=== PATIENT | female | born 1965 | race Caucasian/White ===

== ENCOUNTER 2017-12-03 21:51 | Emergency (ER) | payer BC, MEDICAID ==
[~2017-12-03] VITALS: Ht 165.1 cm; Wt 52.2 kg
[2017-12-03 21:51] VITALS: BP 102/64
[~2017-12-03 21:51] MED LIST: IBUP200C5 PO; SULF1TAB44 PO; SUMA4PEN SQ; [UNRECOGNIZED DRUG - OTHER]
[2017-12-03] MEDS ORDERED: LIDOCAINE HCL/PF 1% 30 ML VIAL TP ONE (23:00)
[2017-12-03] MEDS ORDERED: LIDOCAINE /MPF 1% VIAL 5 ML VIAL ONE (23:13)
== END 2017-12-03 23:54 | disposition home or self-care (01) ==
LOC: ER 21:51
DX: S91.204A Unspecified open wound of right lesser toe(s) with damage to nail, initial encounter (principal); Z90.89 Acquired absence of other organs; Z88.8 Allergy status to other drugs, medicaments and biological substances; W22.8XXA Striking against or struck by other objects, initial encounter; Y93.89 Activity, other specified; Y92.512 Supermarket, store or market as the place of occurrence of the external cause; Y99.8 Other external cause status
CPT/HCPCS: 99282; A4606; J3490 ×2; Z7610; Z7502